=== PATIENT | female | born 1990 | race Caucasian/White ===

== ENCOUNTER 2016-11-21 12:26 | Emergency (ER) | payer MEDICAID ==
[~2016-11-21] VITALS: Ht 162.6 cm; Wt 75.0 kg
[~2016-11-21 12:26] MED LIST: DIVA500T PO; DOCU-138 PO; LAMO150T PO; PHEN300C6 PO; QUET25TA PO; QUET300T2 PO; TOPI-35 PO; ZIPR20CA2 PO; ZIPR60CA4 PO
[2016-11-21 12:27] VITALS: BP 140/81
[2016-11-21] MEDS ORDERED: SODIUM CHLORIDE 0.9% 1,000 ML IV ONE (13:22)
[2016-11-21] MEDS ORDERED: LEVETIRACETAM 500MG PREMIX 100 ML IV ONE (13:30)
[2016-11-21] MEDS ORDERED: ACETAMINOPHEN 325MG TABLET PO ONE (13:30)
[2016-11-21 14:25] LABS: BASOPHILS % 0.2 % (0.0-2.0); EOSINOPHILS % 0.5 % (0.0-5.0); HEMATOCRIT. 36.2 % (36.0-48.0); HEMOGLOBIN. 12.2 g/dL (12.0-16.0); LYMPHOCYTES % 31.2 % (20.0-50.0); MEAN CORPUSCULAR HEMOGLOBIN 31.9 pg (28.0-32.0); MEAN CORPUSCULAR HGB CONC 33.6 g/dL (31.0-37.0); MEAN CORPUSCULAR VOLUME 94.7 fL (81.0-99.0); MEAN PLATELET VOLUME 10.9 fl (7.4-10.4); MONOCYTES % 8.6 % (2.0-8.0); NEUTROPHILS % 59.5 % (40.0-76.0); PLATELET 208 x1000/uL (130-400); RED BLOOD CELL COUNT 3.82 mill/uL (4.2-5.4); RED CELL DISTRIBUTION WIDTH 13.5 % (11.6-14.6); WHITE BLOOD COUNT 7.6 x1000/uL (4.5-11.0)
[2016-11-21 14:27] LABS: ALBUMIN 3.8 g/dL (3.4-5.0); ANION GAP 15; CALCIUM 9.2 mg/dL (8.5-10.1); CARBON DIOXIDE 20 mEq/L (21-32); CHLORIDE 109 mEq/L (98-107); ETHANOL BLOOD < 10 mg/dL; INDEX HEMOLYSI 1 (1-3); INDEX ICTERIC 1 (1-4); INDEX LIPEMIC 1 (1-3); UREA NITROGEN BLOOD 16 mg/dL (7-21)
[2016-11-21 14:29] LABS: HCG SCREEN NEGATIVE
[2016-11-21 14:32] LABS: ALANINE AMINOTRANSFERASE 17 IU/L (13-61); NT PRO B-TYPE NATRIURETIC PEP 65 pg/mL (5-125); TROPONIN I < 0.02 ng/mL (0.00-0.04); VALPROIC ACID 91.5 ug/mL (50-100)
[2016-11-21 14:33] LABS: CARBAMAZEPINE < 0.5 ug/mL (4-12); PHENOBARBITAL < 2.1 ug/mL (15.0-40.0); PHENYTOIN < 0.4 ug/mL (10-20)
[2016-11-21 14:34] LABS: eGFR > 60 mL/min (>60)
== END 2016-11-21 16:27 | disposition home or self-care (01) ==
LOC: ER 12:56
DX: R56.9 Unspecified convulsions (principal); E86.0 Dehydration; F31.9 Bipolar disorder, unspecified; E78.00 Pure hypercholesterolemia, unspecified; Z88.0 Allergy status to penicillin; Z79.899 Other long term (current) drug therapy
CPT/HCPCS: 36415; 80053; 80156; 80165; 80184; 80185; 83880; 84443; 84484; 84703; 85025; 99284; G0482; J7030

== ENCOUNTER 2016-11-29 12:25 | Emergency (ER) | payer MEDICAID ==
[~2016-11-29] VITALS: Ht 165.1 cm; Wt 76.0 kg
[2016-11-29] MEDS ORDERED: LORAZEPAM 2MG/ML CPJ IV PRN (12:45)
[2016-11-29 13:20] LABS: BASOPHILS % 0.3 % (0.0-2.0); EOSINOPHILS % 0.6 % (0.0-5.0); HEMATOCRIT. 35.4 % (36.0-48.0); HEMOGLOBIN. 11.7 g/dL (12.0-16.0); MEAN CORPUSCULAR HEMOGLOBIN 31.4 pg (28.0-32.0); MEAN CORPUSCULAR VOLUME 95.2 fL (81.0-99.0); MEAN PLATELET VOLUME 10.5 fl (7.4-10.4); MONOCYTES % 6.9 % (2.0-8.0); NEUTROPHILS % 67.2 % (40.0-76.0); PLATELET 211 x1000/uL (130-400); RED BLOOD CELL COUNT 3.72 mill/uL (4.2-5.4); RED CELL DISTRIBUTION WIDTH 13.6 % (11.6-14.6)
[2016-11-29 13:34] LABS: ALANINE AMINOTRANSFERASE 19 IU/L (13-61); ALBUMIN 3.6 g/dL (3.4-5.0); ANION GAP 12; CALCIUM 8.8 mg/dL (8.5-10.1); CARBON DIOXIDE 25 mEq/L (21-32); CHLORIDE 109 mEq/L (98-107); ETHANOL BLOOD < 10 mg/dL; INDEX HEMOLYSI 1 (1-3); INDEX ICTERIC 1 (1-4); INDEX LIPEMIC 1 (1-3); PHENYTOIN 0.5 ug/mL (10-20); UREA NITROGEN BLOOD 19 mg/dL (7-21); eGFR > 60 mL/min (>60)
[2016-11-29 13:45] LABS: VALPROIC ACID 131.2 ug/mL (50-100)
[2016-11-29 15:33] VITALS: BP 124/66
== END 2016-11-29 15:41 | disposition home or self-care (01) ==
LOC: ER 12:27
DX: G40.89 Other seizures (principal); R62.50 Unspecified lack of expected normal physiological development in childhood; S00.511A Abrasion of lip, initial encounter; E78.00 Pure hypercholesterolemia, unspecified; F31.9 Bipolar disorder, unspecified; Z88.0 Allergy status to penicillin; Z79.899 Other long term (current) drug therapy
CPT/HCPCS: 36415; 80053; 80165; 80185; 85025; 99284; G0482; Z7610

== ENCOUNTER 2017-04-21 12:14 | Inpatient (IN) | payer MEDICAID ==
[~2017-04-21] VITALS: Ht 162.6 cm; Wt 73.0 kg
[~2017-04-21 12:14] MED LIST changes: -TOPI-35 PO; +TOPI100T37 PO; +ZIPR60CA2 PO; -ZIPR60CA4 PO
[2017-04-21] MEDS ORDERED: LORAZEPAM 2MG/ML CPJ IV ONE ×2 (12:45→14:15)
[2017-04-21 12:56] LABS: BASOPHILS % 0.4 % (0.0-2.0); EOSINOPHILS % 0.6 % (0.0-5.0); HEMATOCRIT. 32.3 % (36.0-48.0); HEMOGLOBIN. 11.1 g/dL (12.0-16.0); LYMPHOCYTES % 32.9 % (20.0-50.0); MEAN CORPUSCULAR HEMOGLOBIN 32.4 pg (28.0-32.0); MEAN CORPUSCULAR VOLUME 94.6 fL (81.0-99.0); MEAN PLATELET VOLUME 10.6 fl (7.4-10.4); MONOCYTES % 7.3 % (2.0-8.0); NEUTROPHILS % 58.8 % (40.0-76.0); PLATELET 207 x1000/uL (130-400); RED BLOOD CELL COUNT 3.42 mill/uL (4.2-5.4); RED CELL DISTRIBUTION WIDTH 13.1 % (11.6-14.6)
[2017-04-21 13:03] LABS: CHLORIDE 106 mEq/L (98-107)
[2017-04-21 13:11] LABS: CARBON DIOXIDE 25 mEq/L (21-32); ETHANOL BLOOD < 10 mg/dL
[2017-04-21 13:14] LABS: CARBAMAZEPINE < 0.5 ug/mL (4-12); PHENOBARBITAL < 2.1 ug/mL (15.0-40.0)
[2017-04-21 13:32] LABS: HCG SCREEN NEGATIVE
[2017-04-21 13:32] LABS: CLARITY URINE CLEAR (CLEAR); COLOR URINE YELLOW (YELLOW); GLUCOSE URINE NEGATIVE (NEGATIVE); KETONES URINE NEGATIVE (NEGATIVE); LEUKOCYTE ESTERASE URINE TRACE (NEGATIVE); NITRITE URINE NEGATIVE (NEGATIVE); OCCULT BLOOD URINE TRACE (NEGATIVE); PH URINE 5.5 (4.5-8.0); PROTEIN URINE NEGATIVE (NEGATIVE); SPECIFIC GRAVITY URINE 1.025 (1.005-1.030)
[2017-04-21 14:01] LABS: *AMPHETAMINES SCREEN URINE NEGATIVE (NEGATIVE); *BARBITURATES SCREEN URINE NEGATIVE (NEGATIVE); *COCAINE SCREEN URINE NEGATIVE (NEGATIVE); CANNABINOID URINE SCREEN NEGATIVE (NEGATIVE); METHADONE URINE SCREEN NEGATIVE (NEGATIVE); OPIATES URINE SCREEN NEGATIVE (NEGATIVE); PHENCYCLIDINE URINE SCREEN NEGATIVE (NEGATIVE)
[2017-04-21 14:02] LABS: *BENZODIAZEPINES SCREEN URINE PRESUMTIVE POSITIVE (NEGATIVE)
[2017-04-21] MEDS ORDERED: VALPROATE SODIUM 1,000 MG in DEXT 5% WATER 100 ML IV ONE (15:15)
[2017-04-21 20:15] VITALS: BP 110/64
[2017-04-21] MEDS ORDERED: CHLO100T25 PO ×2 (23:11→23:12)
[2017-04-21] MEDS ORDERED: SERT50TA PO (23:16)
[2017-04-21] MEDS ORDERED: TRAZ-129 PO (23:19)
[2017-04-21] MEDS ORDERED: LEVE750T52 PO (23:21)
[2017-04-21] MEDS ORDERED: TOPI25TA48 PO (23:27)
[2017-04-21] MEDS ORDERED: GUAN1TAB20 PO (23:30)
[2017-04-21] MEDS ORDERED: LEVE500T19 PO (23:32)
[2017-04-21] MEDS ORDERED: BENZ1TAB7 PO (23:33)
[2017-04-22] VITALS (7 sets, daily range): BP systolic 90–108; BP diastolic 50–65
[2017-04-22] MEDS ORDERED: DEXTROSE 50% WATER 50ML SYRINGE IV PRN
[2017-04-22] MEDS: BLOOD SUGAR DIAGNOSTIC STRIP TEST SCH ×4 (06:11→21:33)
[2017-04-22] MEDS: INSULIN LISPRO 100 UNITS/ML SUBCUT SCH ×4 (06:11→21:00)
[2017-04-22] MEDS: LORAZEPAM 2MG/ML CPJ IV PRN ×2 (09:23→18:49)
[2017-04-22 09:41] LABS: HEMATOCRIT 33.9 % (36.0-48.0); HEMOGLOBIN 11.2 g/dL (12.0-16.0); MEAN CORPUSCULAR HEMOGLOBIN 31.9 pg (28.0-32.0); MEAN CORPUSCULAR VOLUME 96.6 fL (81.0-99.0); PLATELET 191 x1000/uL (130-400); RED BLOOD CELL COUNT 3.52 mill/uL (4.2-5.4); RED CELL DISTRIBUTION WIDTH 13.6 % (11.6-14.6)
[2017-04-22] MEDS: TOPIRAMATE 100MG TABLET PO SCH ×2 (10:05→20:14)
[2017-04-22] MEDS: VALPROIC ACID 250MG CAPSULE PO SCH ×2 (10:05→20:14)
[2017-04-22] MEDS: PHENYTOIN SODIUM EXTENDED 100MG CAPSULE PO SCH ×2 (10:05→15:41)
[2017-04-22] MEDS: LAMOTRIGINE 100MG TABLET PO SCH ×2 (10:06→20:14)
[2017-04-22] MEDS ORDERED: SODIUM CHLORIDE 0.9% 1,000 ML IV ONE (16:15)
== END 2017-04-22 22:15 | disposition short-term general hospital (02) | DRG 53 ==
LOC: ER 12:25 → 8WST 15:36 → ENRESERV 19:06 → EDBEDREQ 20:03
PROVIDERS: ADMIT Internal Medicine; ATTEND Internal Medicine
DX: R56.9 Unspecified convulsions (principal); N39.0 Urinary tract infection, site not specified; E11.9 Type 2 diabetes mellitus without complications; D64.9 Anemia, unspecified; E78.5 Hyperlipidemia, unspecified; F31.9 Bipolar disorder, unspecified; W18.11XA Fall from or off toilet without subsequent striking against object, initial encounter; E78.00 Pure hypercholesterolemia, unspecified; Z91.14 Patient's other noncompliance with medication regimen; Z88.0 Allergy status to penicillin; Y93.89 Activity, other specified; Y92.89 Other specified places as the place of occurrence of the external cause
CPT/HCPCS: 36415; 70450; 72125; 80053; 80156; 80165; 80184; 80185; 80305; 81001; 82962; 84703; 85025; 85027; 96374; 96375; 96376; 99285; G0482; J2060; J3490; J7030; J7060; A4315

== ENCOUNTER 2017-11-25 14:51 | Emergency (ER) | payer MEDICAID ==
[~2017-11-25] VITALS: Ht 162.6 cm; Wt 50.0 kg
[2017-11-25] MEDS ORDERED: BUSP5TAB3 PO (15:00)
[2017-11-25] MEDS ORDERED: DIVA500T PO (15:00)
[2017-11-25] MEDS ORDERED: ARIP2TAB3 PO (15:00)
[2017-11-25] MEDS ORDERED: LEVE500T19 PO (15:00)
[2017-11-25] MEDS ORDERED: SERT25TA74 PO (15:00)
[2017-11-25] MEDS ORDERED: BENZ0.5T3 PO (15:00)
[2017-11-25] MEDS ORDERED: SODIUM CHLORIDE 0.9% 1,000 ML IV ONE (15:55)
[2017-11-25 16:40] LABS: BASOPHILS % 0.1 % (0.0-2.0); EOSINOPHILS % 2.4 % (0.0-5.0); HEMOGLOBIN. 12.5 g/dL (12.0-16.0); LYMPHOCYTES % 14.5 % (20.0-50.0); MEAN CORPUSCULAR HEMOGLOBIN 30.4 pg (28.0-32.0); MEAN CORPUSCULAR VOLUME 89.8 fL (81.0-99.0); MONOCYTES % 6.2 % (2.0-8.0); NEUTROPHILS % 76.8 % (40.0-76.0); PLATELET 287 x1000/uL (130-400); RED BLOOD CELL COUNT 4.12 mill/uL (4.2-5.4); RED CELL DISTRIBUTION WIDTH 13.5 % (11.6-14.6)
[2017-11-25 16:46] LABS: CHLORIDE 113 mEq/L (98-107); INR 1.1; PARTIAL THROMBOPLASTIN TIME 22.3 sec (23.4-31.0); PROTHROMBIN TIME 11.2 sec (9.4-11.6)
[2017-11-25 16:55] LABS: CLARITY URINE CLOUDY (CLEAR); COLOR URINE ORANGE (YELLOW); KETONES URINE NEGATIVE (NEGATIVE); LEUKOCYTE ESTERASE URINE 1+ (NEGATIVE); NITRITE URINE NEGATIVE (NEGATIVE); OCCULT BLOOD URINE 3+ (NEGATIVE); PH URINE 5.5 (4.5-8.0); PROTEIN URINE 1+ (NEGATIVE); SPECIFIC GRAVITY URINE 1.024 (1.005-1.030)
[2017-11-25 23:10] VITALS: BP 100/51
== END 2017-11-25 23:00 | disposition home or self-care (01) ==
LOC: ER 15:09
DX: T62.91XA Toxic effect of unspecified noxious substance eaten as food, accidental (unintentional), initial encounter (principal); E11.9 Type 2 diabetes mellitus without complications; E78.00 Pure hypercholesterolemia, unspecified; G40.909 Epilepsy, unspecified, not intractable, without status epilepticus; F31.9 Bipolar disorder, unspecified; Z88.0 Allergy status to penicillin; Y92.128 Other place in nursing home as the place of occurrence of the external cause
CPT/HCPCS: 36415; 80053; 81003; 81025; 83605; 83690; 85025; 85610; 85730; 96360; 96361; 99285; J7030; Z7610

== ENCOUNTER 2021-11-14 17:52 | Emergency (ER) | payer MEDICAID ==
[~2021-11-14] VITALS: Ht 165.1 cm; Wt 82.0 kg
[~2021-11-14 17:52] MED LIST changes: +ARIP2TAB3 PO; +BENZ0.5T43 PO; +BUSP5TAB3 PO; +DIVA-75 PO; -DIVA500T PO; -DOCU-138 PO; -LAMO150T PO; +LEVE500T19 PO; -PHEN300C6 PO; -QUET25TA PO; -QUET300T2 PO; +SERT25TA74 PO; -TOPI100T37 PO; -ZIPR20CA2 PO; -ZIPR60CA2 PO
[2021-11-14] MEDS ORDERED: LORAZEPAM 1MG TABLET PO ONE (19:15)
[2021-11-14 19:55] LABS: BASOPHILS % 0.4 % (0.0-2.0); EOSINOPHILS % 1.5 % (0.0-5.0); HEMATOCRIT. 35.2 % (36.0-48.0); HEMOGLOBIN. 11.5 g/dL (12.0-16.0); LYMPHOCYTES % 40.4 % (20.0-50.0); MEAN CORPUSCULAR HEMOGLOBIN 30.2 pg (28.0-32.0); MEAN CORPUSCULAR VOLUME 92.6 fL (81.0-99.0); MEAN PLATELET VOLUME 10.3 fl (7.4-10.4); MONOCYTES % 12.1 % (2.0-8.0); NEUTROPHILS % 45.6 % (40.0-76.0); PLATELET 203 x1000/uL (130-400); RED BLOOD CELL COUNT 3.81 mill/uL (4.2-5.4); RED CELL DISTRIBUTION WIDTH 14.9 % (11.6-14.6)
[2021-11-14 20:02] LABS: CHLORIDE 112 mEq/L (98-107)
[2021-11-14 20:06] LABS: ETHANOL BLOOD < 10 mg/dL
[2021-11-14 20:16] LABS: HCG SCREEN NEGATIVE
[2021-11-14] MEDS ORDERED: LEVETIRACETAM 500MG TABLET PO SCH (21:00)
[2021-11-14] MEDS ORDERED: DIVALPROEX SODIUM 500MG DR TABLET PO SCH (21:00)
[2021-11-14 21:10] LABS: CLARITY URINE CLEAR (CLEAR); COLOR URINE ORANGE (YELLOW); KETONES URINE NEGATIVE (NEGATIVE); LEUKOCYTE ESTERASE URINE NEGATIVE (NEGATIVE); NITRITE URINE NEGATIVE (NEGATIVE); OCCULT BLOOD URINE NEGATIVE (NEGATIVE); PH URINE 7.5 (4.5-8.0); PROTEIN URINE NEGATIVE (NEGATIVE); UROBILINOGEN URINE 0.2 E.U./dL (0.2-1.0)
[2021-11-14 21:24] LABS: *AMPHETAMINES SCREEN URINE NEGATIVE (NEGATIVE); *BARBITURATES SCREEN URINE NEGATIVE (NEGATIVE); *BENZODIAZEPINES SCREEN URINE NEGATIVE (NEGATIVE); *COCAINE SCREEN URINE NEGATIVE (NEGATIVE); CANNABINOID URINE SCREEN NEGATIVE (NEGATIVE); METHADONE URINE SCREEN NEGATIVE (NEGATIVE); OPIATES URINE SCREEN NEGATIVE (NEGATIVE); PHENCYCLIDINE URINE SCREEN NEGATIVE (NEGATIVE)
[2021-11-14] MEDS ORDERED: LORAZEPAM 1MG TABLET PO NR (21:34)
[2021-11-15] MEDS ORDERED: HYDR26CR2 TP (06:06)
[2021-11-15] MEDS ORDERED: ACETAMINOPHEN 325MG TABLET PO ONE (06:15)
[2021-11-15 06:34] VITALS: BP 101/59
== END 2021-11-15 07:23 | disposition home or self-care (01) ==
LOC: ER 17:52
DX: F41.9 Anxiety disorder, unspecified (principal); K64.9 Unspecified hemorrhoids; F31.9 Bipolar disorder, unspecified; G40.909 Epilepsy, unspecified, not intractable, without status epilepticus; E11.9 Type 2 diabetes mellitus without complications; E78.00 Pure hypercholesterolemia, unspecified; G80.9 Cerebral palsy, unspecified; Z20.822 Contact with and (suspected) exposure to COVID-19; Z88.0 Allergy status to penicillin
CPT/HCPCS: 36415; 80053; 80305; 80307; 80320; 80329; 81003; 84703; 85025; 99285; C9803; U0003; U0005; G0480

== ENCOUNTER 2021-12-29 13:31 | Emergency (ER) | payer MEDICAID ==
[~2021-12-29] VITALS: Ht 160 cm; Wt 71.0 kg
[~2021-12-29 13:31] MED LIST changes: +HYDR26CR2 TP
[2021-12-29] MEDS ORDERED: VALPROATE SODIUM 1,000 MG in DEXT 5% WATER 100 ML IV ONE (14:30)
[2021-12-29] MEDS ORDERED: SODIUM CHLORIDE 0.9% 1,000 ML IV ONE (14:30)
[2021-12-29 15:40] LABS: CHLORIDE 116 mEq/L (98-107)
[2021-12-29 15:48] LABS: ETHANOL BLOOD < 10 mg/dL
[2021-12-29 15:50] LABS: BASOPHILS % 0.2 % (0.0-2.0); HEMATOCRIT. 35.7 % (36.0-48.0); HEMOGLOBIN. 11.3 g/dL (12.0-16.0); LYMPHOCYTES % 30.6 % (20.0-50.0); MEAN CORPUSCULAR HEMOGLOBIN 31.4 pg (28.0-32.0); MEAN CORPUSCULAR VOLUME 99.1 fL (81.0-99.0); MEAN PLATELET VOLUME 10.6 fl (7.4-10.4); NEUTROPHILS % 59.2 % (40.0-76.0); PLATELET 167 x1000/uL (130-400)
[2021-12-29 16:15] LABS: CLARITY URINE CLEAR (CLEAR); COLOR URINE YELLOW (YELLOW); KETONES URINE NEGATIVE (NEGATIVE); LEUKOCYTE ESTERASE URINE TRACE (NEGATIVE); NITRITE URINE NEGATIVE (NEGATIVE); OCCULT BLOOD URINE 2+ (NEGATIVE); PH URINE 6.5 (4.5-8.0); PROTEIN URINE NEGATIVE (NEGATIVE); SPECIFIC GRAVITY URINE 1.011 (1.005-1.030); UROBILINOGEN URINE 0.2 E.U./dL (0.2-1.0)
[2021-12-29 16:31] LABS: *AMPHETAMINES SCREEN URINE NEGATIVE (NEGATIVE); *BARBITURATES SCREEN URINE NEGATIVE (NEGATIVE); *BENZODIAZEPINES SCREEN URINE NEGATIVE (NEGATIVE); *COCAINE SCREEN URINE NEGATIVE (NEGATIVE); CANNABINOID URINE SCREEN NEGATIVE (NEGATIVE); METHADONE URINE SCREEN NEGATIVE (NEGATIVE); OPIATES URINE SCREEN NEGATIVE (NEGATIVE); PHENCYCLIDINE URINE SCREEN NEGATIVE (NEGATIVE)
[2021-12-29] MEDS ORDERED: NITR-87 MT (18:06)
[2021-12-29] MEDS ORDERED: NITROFURANTOIN 100MG M/M CAPSULE PO NR (19:00)
[2021-12-29] MEDS ORDERED: LORAZEPAM 2MG/ML CPJ IV ONE (20:30)
[2021-12-29] MEDS ORDERED: TOPIRAMATE 100MG TABLET PO SCH (20:45)
[2021-12-30 00:55] VITALS: BP 90/30
[2022-01-02 13:11] LABS: TOPIRAMATE 7.7 ug/mL (2.0-25.0)
== END 2021-12-30 01:28 | disposition short-term general hospital (02) ==
LOC: ER 13:41
DX: R56.9 Unspecified convulsions (principal); N39.0 Urinary tract infection, site not specified; Z88.0 Allergy status to penicillin; Z20.822 Contact with and (suspected) exposure to COVID-19
CPT/HCPCS: 36415; 71045; 80053; 80165; 80201; 80305; 80320; 81003; 85025; 87426; 96365; 96375; 99285; C9803; J2060; J3490; J7030; J7060; G0480

== ENCOUNTER 2022-02-04 14:39 | Emergency (ER) | payer MEDICAID ==
[~2022-02-04] VITALS: Ht 167.6 cm; Wt 73.0 kg
[~2022-02-04 14:39] MED LIST changes: +NITR-87 MT
[2022-02-04] MEDS ORDERED: SODIUM CHLORIDE 0.9% 1,000 ML IV ONE (18:45)
[2022-02-04 22:25] LABS: *AMPHETAMINES SCREEN URINE NEGATIVE (NEGATIVE); *BARBITURATES SCREEN URINE NEGATIVE (NEGATIVE); *BENZODIAZEPINES SCREEN URINE NEGATIVE (NEGATIVE); *COCAINE SCREEN URINE NEGATIVE (NEGATIVE); CANNABINOID URINE SCREEN NEGATIVE (NEGATIVE); METHADONE URINE SCREEN NEGATIVE (NEGATIVE); OPIATES URINE SCREEN NEGATIVE (NEGATIVE); PHENCYCLIDINE URINE SCREEN NEGATIVE (NEGATIVE)
[2022-02-04 23:56] LABS: BASOPHILS % 0.3 % (0.0-2.0); EOSINOPHILS % 1.1 % (0.0-5.0); HEMATOCRIT. 30.2 % (36.0-48.0); HEMOGLOBIN. 10.3 g/dL (12.0-16.0); LYMPHOCYTES % 57.4 % (20.0-50.0); MEAN CORPUSCULAR HEMOGLOBIN 32.3 pg (28.0-32.0); MEAN PLATELET VOLUME 10.3 fl (7.4-10.4); MONOCYTES % 8.6 % (2.0-8.0); NEUTROPHILS % 32.6 % (40.0-76.0); PLATELET 210 x1000/uL (130-400); RED BLOOD CELL COUNT 3.18 mill/uL (4.2-5.4); RED CELL DISTRIBUTION WIDTH 16.9 % (11.6-14.6)
[2022-02-05 00:02] LABS: CHLORIDE 117 mEq/L (98-107)
[2022-02-05 00:10] LABS: ETHANOL BLOOD < 10 mg/dL; HCG SCREEN NEGATIVE
[2022-02-05 19:41] VITALS: BP 104/58
== END 2022-02-05 20:00 ==
LOC: ER 15:14 → CANBEDREQ 02-05 23:51
DX: T50.902A Poisoning by unspecified drugs, medicaments and biological substances, intentional self-harm, initial encounter (principal); T39.392A Poisoning by other nonsteroidal anti-inflammatory drugs [NSAID], intentional self-harm, initial encounter; T43.592A Poisoning by other antipsychotics and neuroleptics, intentional self-harm, initial encounter; T42.6X2A Poisoning by other antiepileptic and sedative-hypnotic drugs, intentional self-harm, initial encounter; F19.10 Other psychoactive substance abuse, uncomplicated; R41.82 Altered mental status, unspecified; Y92.89 Other specified places as the place of occurrence of the external cause; R45.850 Homicidal ideations; Z20.822 Contact with and (suspected) exposure to COVID-19; F33.9 Major depressive disorder, recurrent, unspecified
CPT/HCPCS: 36415; 80053; 80201; 80305; 80307; 80320; 80329; 82542; 84703; 85025; 93005; 96360; 99285; C9803; J7030; U0003; U0005; G0480